=== PATIENT | female | born 1995 | race Native Hawaiian/Other Pacific Islander ===

== ENCOUNTER 2017-12-21 11:17 | Observation (INO) | payer OTHER ==
[~2017-12-21] VITALS: Ht 154.9 cm; Wt 40.4 kg
[2017-12-21 11:48] VITALS: BP 115/67; TEMP 98.6; Ht 154.9 cm; Wt 40.4 kg
[2017-12-21 13:04] LABS: PLATELET COUNT 219 K/uL (152-353)
[2017-12-21 13:43] LABS: POTASSIUM 3.4 mmol/L (3.6-5.2)
[2017-12-21 15:59] VITALS: BP 90/59; TEMP 98.8
[2017-12-21 20:00] VITALS: BP 106/69; TEMP 97.7
[2017-12-22] VITALS: BP 95/54; TEMP 99.1
[2017-12-22 04:00] VITALS: BP 118/81; TEMP 98.7
[2017-12-22 05:11] LABS: PLATELET COUNT 216 K/uL (152-353)
[2017-12-22 05:41] LABS: POTASSIUM 3.6 mmol/L (3.6-5.2)
[2017-12-22 08:09] VITALS: BP 93/49; TEMP 98.3
[2017-12-22 12:00] VITALS: BP 81/47; TEMP 98.2
[2017-12-22 16:00] VITALS: BP 94/53; TEMP 98.1
[2017-12-22 20:00] VITALS: BP 94/55; TEMP 98.9
[2017-12-23] VITALS: BP 87/47; TEMP 97.5
[2017-12-23 04:00] VITALS: BP 82/43; TEMP 98
[2017-12-23 05:53] LABS: POTASSIUM 4.2 mmol/L (3.6-5.2)
[2017-12-23 06:02] LABS: PLATELET COUNT 226 K/uL (152-353)
[2017-12-23 08:00] VITALS: BP 89/48; TEMP 98
[2017-12-23 12:00] VITALS: BP 93/53; TEMP 97.6
[2017-12-23 16:00] VITALS: BP 81/47; TEMP 98.4
[2017-12-23 20:00] VITALS: BP 101/59; TEMP 98.4
[2017-12-24] VITALS: BP 87/54; TEMP 97.9
[2017-12-24 04:30] VITALS: BP 86/53; TEMP 97.5
[2017-12-24 07:23] LABS: PLATELET COUNT 246 K/uL (152-353)
[2017-12-24 07:49] LABS: POTASSIUM 3.6 mmol/L (3.6-5.2)
[2017-12-24 07:51] VITALS: BP 91/58; TEMP 97.7
[2017-12-24 12:00] VITALS: BP 101/61; TEMP 98.3
== END 2017-12-24 12:35 | disposition home or self-care (01) ==
LOC: MED/SURG 11:17
PROVIDERS: Family Medicine; ADMIT Nurse Practitioner Family
DX: N75.0 Cyst of Bartholin's gland (principal); R52 Pain, unspecified; B95.7 Other staphylococcus as the cause of diseases classified elsewhere
CPT/HCPCS: 36415; 80053; 83605; 85027; 87070; 87077; 87185; 87186; 87205; 96367; 96375; 99220; G0378; G0379; J1170; J1885; J2270; J2405; J2550; J3370

== ENCOUNTER 2018-05-24 21:10 | Emergency (ER) | payer OTHER ==
[~2018-05-24] VITALS: Ht 154.9 cm; Wt 46.3 kg
[2018-05-24 21:54] LABS: PLATELET COUNT 285 K/uL (152-353)
[2018-05-24 22:08] LABS: POTASSIUM 3.1 mmol/L (3.6-5.2)
[2018-05-24 22:29] VITALS: BP 96/63; TEMP 98.3
== END 2018-05-24 22:36 | disposition home or self-care (01) ==
LOC: ED 21:10
DX: N12 Tubulo-interstitial nephritis, not specified as acute or chronic (principal)
CPT/HCPCS: 36415; 80053; 81000; 85027; 96372; 99283; J1885

== ENCOUNTER 2021-09-18 16:53 | Emergency (ER) | payer OTHER ==
[~2021-09-18] VITALS: Ht 154.9 cm; Wt 53.5 kg
[2021-09-18 17:07] VITALS: BP 110/69; TEMP 98.9
== END 2021-09-18 18:06 | disposition home or self-care (01) ==
LOC: ED 16:53
DX: Z34.92 Encounter for supervision of normal pregnancy, unspecified, second trimester (principal)
CPT/HCPCS: 80307; 81000; 99283